=== PATIENT | male | born 1960 | race Caucasian/White ===

== ENCOUNTER 2018-12-22 08:39 | Outpatient (CLI) | payer BC ==
--- NOTE | 2018-12-22 10:19 | MRI ---
MRI Brain W WO Con: 12/22/2018 12:00 AM CLINICAL HISTORY: Mild cognitive impairment. COMPARISON: None. FINDINGS: Extra axial spaces: Normal in size and morphology for the patient's age. Acute infarction: None. Ventricular system: Normal in size and morphology for the patient's age. Basal cisterns: Normal. Cerebral parenchyma: Microvascular ischemic changes. Midline shift: None. Cerebellum: Normal. Brainstem: Normal. Paranasal sinuses:Scattered mucosal thickening. Intraaxial Enhancement: None IMPRESSION:No acute intracranial abnormality.
== END 2018-12-22 08:40 | disposition home or self-care (01) ==
LOC: SCSMRI 08:39
PROVIDERS: ATTEND Psychiatry & Neurology Neurology
DX: G31.84 Mild cognitive impairment of uncertain or unknown etiology (principal)
CPT/HCPCS: 70553

== ENCOUNTER 2019-10-04 08:04 | Outpatient (CLI) | payer BC ==
--- NOTE | 2019-10-04 10:24 | MRI ---
Exam: Brain MRI with and without contrast HISTORY: Mild cognitive impairment COMPARISON: 12/22/2018 FINDINGS: Gradient echo sequence: No hemorrhage Calvarium: Appropriate T1 marrow signal intensity Midline brain parenchyma: Unremarkable Cerebrum:No parenchymal mass, mass effect or midline shift. Brain volume, age-appropriate. Cortical g ray-white matter differentiation is preserved. Ventricles and sulci are patent and symmetric. Stable T2 and FLAIR white matter hyperintensities, nonspecific. No associated enhancement or restrict ed diffusion. Ventricles: No evidence of hydrocephalus. Sinuses and mastoid air cells: Mild mucosal thickening of the paranasal sinuses Diffusion: Central arterial flow is maintained. Absent restricted diffusion. Postcontrast images: No pathologic enhancement of the brain parenchyma. IMPRESSION: 1. Absent restricted diffusion. No acute infarct 2. No pathologic enhancement the brain parenchyma 3. Stable white matter hyperintensities on the T2 and FLAIR sequence likely representing chronic smal l vessel ischemic changes of the white matter.
[2019-10-04] MEDS ORDERED: Magnevist 469MG/ML 20 ML VIAL ONE (14:26)
== END 2019-10-04 08:05 | disposition home or self-care (01) ==
LOC: BICMRI 08:04
PROVIDERS: ATTEND Psychiatry & Neurology Neurology
DX: G31.84 Mild cognitive impairment of uncertain or unknown etiology (principal)
CPT/HCPCS: 70553; 82565; A9579